=== PATIENT | female | born 1960 | race Caucasian/White ===

== ENCOUNTER 2018-09-26 16:50 | Inpatient (IN) | payer OTHER ==
[~2018-09-26] VITALS: Ht 160 cm; Wt 68.3 kg
[~2018-09-26 16:50] MED LIST: ALBU8.5H8 INH; ASPI-496 PO; CALCIUM PO; CHOL3000 PO; ESTR1TAB15 PO; FAMO-79 PO; FISH1CAP PO; FLAX1CAP PO; FLUT16SP2 NAS; FLUT1DIS3 INH; LEVO125T PO; LORA-702 PO; LOSA50TA14 PO; MELA5TAB19 PO; MELO15TA24 PO; MULT-658 PO; OMEP40CA6 PO; PROG100C2 PO; SENN-92 PO; VITA1TAB61 PO
[2018-09-26] MEDS ORDERED: SODIUM CHLORIDE FLUSH 10ML SYR IVF ONE (17:30)
[2018-09-26] MEDS ORDERED: ASPIRIN 81 MG TABLET CHEW PO ONE (17:30)
--- NOTE | 2018-09-26 17:59 | NUR ---
PT TO ROOM FROM LOBBY.
[2018-09-26 18:42] LABS: BASOPHILS # (AUTO) 0.03 x10^3/uL (0-0.1); BASOPHILS % (AUTO) 1 % (0-1); EOSINOPHILS # (AUTO) 0.06 x10^3/uL (0-0.4); EOSINOPHILS % (AUTO) 1 % (1-7); LYMPHOCYTES # (AUTO) 1.11 x10^3/uL (1-3.4); LYMPHOCYTES % (AUTO) 20 % (22-44); MD NO; MEAN CORPUSCULAR HEMOGLOBIN 32.3 pg (27.0-34.8); MEAN CORPUSCULAR HGB CONC 34.1 g/dL (32.4-35.8); MEAN CORPUSCULAR VOLUME 94.9 fL (80-100); MEAN PLATELET VOLUME 8.3 fL (7.4-10.4); MONOCYTES # (AUTO) 0.43 x10^3/uL (0.2-0.8); MONOCYTES % (AUTO) 8 % (2-9); NEUTROPHILS # (AUTO) 3.98 x10^3/uL (1.8-6.8); NEUTROPHILS % (AUTO) 71 % (42-75); PLATELET COUNT 270 x10^3/uL (130-400); RED BLOOD COUNT 4.51 x10^6/uL (3.82-5.3); RED CELL DISTRIBUTION WIDTH 14.6 % (9.6-15.2)
[2018-09-26 18:53] LABS: ALBUMIN 3.9 g/dL (3.4-5.0); ANION GAP 7 mmol/L (5-15); CALCIUM 8.9 mg/dL (8.5-10.1); CHLORIDE 103 mmol/L (98-107)
[2018-09-26 19:00] LABS: ALANINE AMINOTRANSFERASE 24 U/L (12-78); ALKALINE PHOSPHATASE 54 U/L (45-117); BILIRUBIN,TOTAL 0.3 mg/dL (0.2-1.0); CREATININE 0.77 mg/dL (0.55-1.02); TOTAL PROTEIN 7.6 g/dL (6.4-8.2); TROPONIN I < 0.015 ng/mL (0.000-0.045)
[2018-09-26] MEDS ORDERED: LABETALOL 5 MG/ML SYRINGE IVPush ONE (19:00)
[2018-09-26] MEDS ORDERED: HYDROcodone/APAP 5/325 TABLET PO ONE (19:00)
[2018-09-26] MEDS ORDERED: ASPIRIN 81 MG TABLET CHEW ONE (19:03)
[2018-09-26] MEDS ORDERED: HYDROcodone/APAP 5/325 TABLET ONE ×2 (19:03→21:21)
--- NOTE | 2018-09-26 19:29 | NUR ---
MED REC COMPLETED
[2018-09-26] MEDS ORDERED: ONDANSETRON 2MG/ML, 2ML IVPush PRN (19:30)
--- NOTE | 2018-09-26 19:55 | NUR ---
TO ROOM 26
[2018-09-26] MEDS ORDERED: NITROGLYCERIN OINT 2%, 1GM TP ONE ×2 (20:00→20:04)
[2018-09-26] MEDS ORDERED: ONDANSETRON 2MG/ML, 2ML ONE (20:03)
[2018-09-26] MEDS ORDERED: hydrALAzine 20 MG/ML, 1ML ONE (20:04)
[2018-09-26] MEDS: hydrALAzine 20 MG/ML, 1ML IV PRN (20:11)
--- NOTE | 2018-09-26 20:27 | NUR ---
report received from SARA Rodriguez, this RN to assume care at this time.
--- NOTE | 2018-09-26 20:44 | NUR ---
PT A&O, RESPS EVEN AND UNLABORED. NEURO INTACT. PT C/O 01/03 HEADACHE, STATES HAS BEEN PRESENT FOR SEVERAL DAYS. PT HAS HX MIGRAINES. SINUS TACH RATE 90'S ON BROTH SETTER WITH NO ECTOPY. PT STATES CHEST PRESSURE RESOLVED.
--- NOTE | 2018-09-26 21:00 | NUR ---
MD RANGEL NOTIFIED THAT PT REPORTS SHE HAS HAD A HEADACHE FOR SEVERAL DAYS. ORDER RECEIVED FOR CT HEAD.
[2018-09-26] MEDS: HYDROcodone/APAP 5/325 TABLET PO PRN (21:25)
--- NOTE | 2018-09-26 21:27 | NUR ---
PT BACK FROM CT, MEDICATED FOR HEADACHE. 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 AWAITING CARDIAC TELE BED AND DISPO.
--- NOTE | 2018-09-26 21:43 | NUR ---
report given to SARA elena at transport.
--- NOTE | 2018-09-26 22:00 | NUR ---
MD RANGEL NOTIFIED PT REQUESTING FOOD, AND HAS NPO ORDERS. OK'D PO INTAKE BEFORE MIDNIGHT, TO BE KEPT NPO AFTER MIDNIGHT. RN NOTIFIED THAT NO ORDERS HAVE BEEN ENTERED FOR PROCEDURES TOMORROW OR MD NANCI DECLINED TO GIVE ANY ADDITIONAL ORDERS.
[2018-09-26 22:06] VITALS: BP 129/84
[2018-09-26 22:10] VITALS: BP 129/84
[2018-09-27 02:44] VITALS: BP 116/74
[2018-09-27 05:20] LABS: BASOPHILS # (AUTO) 0.02 x10^3/uL (0-0.1); BASOPHILS % (AUTO) 0 % (0-1); EOSINOPHILS # (AUTO) 0.05 x10^3/uL (0-0.4); EOSINOPHILS % (AUTO) 1 % (1-7); LYMPHOCYTES # (AUTO) 1.03 x10^3/uL (1-3.4); LYMPHOCYTES % (AUTO) 20 % (22-44); MD NO; MEAN CORPUSCULAR HEMOGLOBIN 32.4 pg (27.0-34.8); MEAN CORPUSCULAR HGB CONC 34.4 g/dL (32.4-35.8); MEAN CORPUSCULAR VOLUME 94.1 fL (80-100); MEAN PLATELET VOLUME 8.1 fL (7.4-10.4); MONOCYTES # (AUTO) 0.42 x10^3/uL (0.2-0.8); MONOCYTES % (AUTO) 8 % (2-9); NEUTROPHILS # (AUTO) 3.59 x10^3/uL (1.8-6.8); NEUTROPHILS % (AUTO) 70 % (42-75); PLATELET COUNT 252 x10^3/uL (130-400); RED BLOOD COUNT 4.13 x10^6/uL (3.82-5.3); RED CELL DISTRIBUTION WIDTH 14.8 % (9.6-15.2)
[2018-09-27 05:31] LABS: CHLORIDE 105 mmol/L (98-107)
[2018-09-27 05:52] LABS: ANION GAP 8 mmol/L (5-15); CALCIUM 8.5 mg/dL (8.5-10.1); CREATININE 0.68 mg/dL (0.55-1.02); TROPONIN I < 0.015 ng/mL (0.000-0.045)
[2018-09-27] MEDS: HYDROcodone/APAP 5/325 TABLET PO PRN (07:31)
[2018-09-27 08:34] LABS: CHOL/HDL RATIO 1.8; LDL/HDL RATIO 0.7 (0.5-3.0)
[2018-09-27] MEDS: METOPROLOL TARTRATE 25 MG TABLET PO SCH ×2 (08:50→17:49)
[2018-09-27 09:00] VITALS: BP 143/89
[2018-09-27 12:12] LABS: MICROSCOPIC NOT IND
[2018-09-27 12:34] LABS: CULTURE INDICATED? NO
[2018-09-27 13:31] VITALS: BP 148/95
[2018-09-27 19:56] VITALS: BP 144/87
[2018-09-27] MEDS ORDERED: DIPHENHYDRAMINE 12.5MG/5ML, 10ML UDC PO PRN (22:00)
[2018-09-27] MEDS ORDERED: ACETAMINOPHEN 325 MG TABLET PO PRN (22:00)
[2018-09-27] MEDS ORDERED: DIPHENHYDRAMINE 25 MG CAPSULE PO PRN (22:30)
[2018-09-28 03:45] VITALS: BP 162/91
[2018-09-28] MEDS: METOPROLOL TARTRATE 25 MG TABLET PO SCH (05:39)
[2018-09-28] MEDS ORDERED: LEVOTHYROXINE 137 MCG TABLET PO SCH (08:00)
[2018-09-28] MEDS: hydrALAzine 20 MG/ML, 1ML IV PRN (08:20)
[2018-09-28 08:26] VITALS: BP 177/91
[2018-09-28] MEDS ORDERED: REGADENOSON 0.4 MG/5 ML SYRINGE ONE (08:26)
[2018-09-28] MEDS ORDERED: LOSARTAN 50MG TABLET PO SCH (09:00)
[2018-09-28] MEDS ORDERED: AMLODIPINE 2.5 MG TABLET ONE (14:36)
[2018-09-28] MEDS ORDERED: METO25TA35 PO (14:49)
[2018-09-28] MEDS ORDERED: AMLO2.5T5 PO (14:49)
[2018-09-28] MEDS ORDERED: AMLODIPINE 2.5 MG TABLET PO ONE (15:00)
[2018-09-28 15:42] VITALS: BP 153/92
== END 2018-09-28 16:50 | disposition home or self-care (01) | DRG 206 ==
LOC: ED 19:42 → EDIP 20:36 → 5SO 21:50
PROVIDERS: ADMIT Internal Medicine; ATTEND Internal Medicine
DX: M94.0 Chondrocostal junction syndrome [Tietze] (principal); Z99.11 Dependence on respirator [ventilator] status; I16.0 Hypertensive urgency; E03.9 Hypothyroidism, unspecified; J45.909 Unspecified asthma, uncomplicated; I27.20 Pulmonary hypertension, unspecified; I34.0 Nonrheumatic mitral (valve) insufficiency; R56.9 Unspecified convulsions; E78.5 Hyperlipidemia, unspecified; G43.909 Migraine, unspecified, not intractable, without status migrainosus; I10 Essential (primary) hypertension; Z79.899 Other long term (current) drug therapy; Z90.49 Acquired absence of other specified parts of digestive tract
CPT/HCPCS: 36415; 70450; 71045; 78452; 80048; 80053; 80061; 81003; 84443; 84484; 85025; 85379; 93005; 93017; 93306; G0378; J2405; J2785; A9502; C9898; J0360; Q0163